=== PATIENT | male | born 1970 | race African-American/Black ===

== ENCOUNTER 2022-11-20 13:52 | Inpatient (IN) ==
[2022-11-20 16:17] VITALS: BMI 35.5
[2022-11-20] MEDS ORDERED: NS 1/2 1,000 ML IV 1,000 ML IV ONE (16:44)
[2022-11-20 16:46] LABS: BASOPHILS % (AUTO) 0.6 % (0.2-1.0); EOSINOPHILS % (AUTO) 0.6 % (0.9-2.9); HEMATOCRIT 49.5 % (42.0-54.0); HEMOGLOBIN 16.4 g/dL (13.5-18.0); LYMPHOCYTES # (AUTO) 1.3 X10^3/uL (1.3-2.9); LYMPHOCYTES % (AUTO) 19.5 % (21.0-51.0); MEAN CORPUSCULAR HEMOGLOBIN 29.9 pg (27.0-34.0); MEAN CORPUSCULAR HGB CONC 33.1 g/dL (33.0-35.0); MEAN CORPUSCULAR VOLUME 90.3 fL (80.0-100.0); MONOCYTES # (AUTO) 0.7 x10^3/uL (0.3-0.8); MONOCYTES % (AUTO) 9.9 % (0.0-13.0); NEUTROPHILS # (AUTO) 4.6 x10^3/uL (2.2-4.8); NEUTROPHILS % (AUTO) 69.4 % (42.0-75.0); PLATELET COUNT 153 X10^3/uL (150.0-450.0); RED BLOOD COUNT 5.48 X10^6/uL (4.7-6.0); RED CELL DISTRIBUTION WIDTH 13.4 % (11.6-16.5); WHITE BLOOD COUNT 6.7 X10^3/uL (3.6-10.0)
[2022-11-20 16:58] LABS: ALANINE AMINOTRANSFERASE 34 Units/L (12-78); ALBUMIN 3.3 g/dL (3.4-5.0); ALKALINE PHOSPHATASE 69 Units/L (46-116); ASPARTATE AMINO TRANSFERASE 26 Units/L (15-37); BLOOD UREA NITROGEN 15 mg/dL (7-18); CALCIUM 8.1 mg/dL (8.5-10.1); CARBON DIOXIDE 29.5 mmol/L (21-32); CHLORIDE 101 mmol/L (98-107); COR CA(FOR HYPOALB) 8.7 mg/dL (8.5-10.1); COR NA(FOR HYPERGLY) 139 mmol/L (136-145); CREATININE 1.15 mg/dL (0.70-1.30); GLUCOSE 154 mg/dL (65-99); POTASSIUM 4.3 mmol/L (3.5-5.1); SODIUM 138 mmol/L (136-145); TOTAL PROTEIN 7.1 g/dL (6.4-8.2); eGFR NON BLACK RACES > 60 (>60)
[2022-11-20] MEDS: NS 1/2 1,000 ML IV 1,000 ML IV SCH (17:25)
[2022-11-20] MEDS: VSL#3 PO SCH (17:26)
[2022-11-20] MEDS: ROBITUSSIN DM PO SCH ×2 (17:27→20:56)
[2022-11-20] MEDS: SOLU-Medrol 40 MG VIAL IVP SCH ×2 (17:27→21:02)
[2022-11-20] MEDS: LEVAQUIN PREMIX IV 750 MG 750 MG/150 ML BAG IV SCH (17:35)
[2022-11-20] MEDS ORDERED: ZOFRAN INJ 4 MG VIAL IVP PRN (18:49)
[2022-11-20] MEDS ORDERED: CATAPRES TAB 0.1 MG PO ONE (19:32)
[2022-11-20] MEDS ORDERED: APRESOLINE INJ 20 MG VIAL IVP ONE (19:32)
[2022-11-20] MEDS: PULMICORT NEB TX 0.5 MG NEB SCH (20:56)
[2022-11-21] MEDS: DUONEB 0.5 MG/3 MG (3 mL) NEB SCH ×5 (00:24→20:50)
[2022-11-21 05:25] LABS: BASOPHILS # (AUTO) 0.2 X10^3/uL (0.0-0.1); BASOPHILS % (AUTO) 2.2 % (0.2-1.0); EOSINOPHILS % (AUTO) 0.3 % (0.9-2.9); HEMATOCRIT 48.4 % (42.0-54.0); HEMOGLOBIN 16.4 g/dL (13.5-18.0); LYMPHOCYTES # (AUTO) 0.6 X10^3/uL (1.3-2.9); LYMPHOCYTES % (AUTO) 9.6 % (21.0-51.0); MEAN CORPUSCULAR HEMOGLOBIN 30.3 pg (27.0-34.0); MEAN CORPUSCULAR VOLUME 89.1 fL (80.0-100.0); MEAN PLATELET VOLUME 9.2 fL (7.4-11.0); MONOCYTES # (AUTO) 0.1 x10^3/uL (0.3-0.8); MONOCYTES % (AUTO) 1.8 % (0.0-13.0); NEUTROPHILS # (AUTO) 5.8 x10^3/uL (2.2-4.8); NEUTROPHILS % (AUTO) 86.1 % (42.0-75.0); PLATELET COUNT 163 X10^3/uL (150.0-450.0); RED BLOOD COUNT 5.43 X10^6/uL (4.7-6.0); RED CELL DISTRIBUTION WIDTH 13.3 % (11.6-16.5); WHITE BLOOD COUNT 6.8 X10^3/uL (3.6-10.0)
[2022-11-21] MEDS: NS 1/2 1,000 ML IV 1,000 ML IV SCH ×2 (05:31→21:49)
[2022-11-21] MEDS: SOLU-Medrol 40 MG VIAL IVP SCH ×3 (05:31→21:50)
[2022-11-21 05:53] LABS: ALANINE AMINOTRANSFERASE 37 Units/L (12-78); ALBUMIN 3.1 g/dL (3.4-5.0); ALKALINE PHOSPHATASE 66 Units/L (46-116); ASPARTATE AMINO TRANSFERASE 22 Units/L (15-37); BLOOD UREA NITROGEN 17 mg/dL (7-18); CALCIUM 7.8 mg/dL (8.5-10.1); CARBON DIOXIDE 27.4 mmol/L (21-32); CHLORIDE 100 mmol/L (98-107); COR CA(FOR HYPOALB) 8.5 mg/dL (8.5-10.1); COR NA(FOR HYPERGLY) 137 mmol/L (136-145); CREATININE 1.14 mg/dL (0.70-1.30); GLUCOSE 187 mg/dL (65-99); POTASSIUM 4.6 mmol/L (3.5-5.1); SODIUM 135 mmol/L (136-145); TOTAL PROTEIN 6.9 g/dL (6.4-8.2); eGFR NON BLACK RACES > 60 (>60)
--- NOTE | 2022-11-21 05:53 | RAD ---
HISTORYShortness of breath, flu-like symptomsSTUDYCHEST, 1 [id number]/05/2023FINDINGSThe trachea is midline. The cardiac silhouette is enlarged with a tortuous thoracic aorta . The lungs are clear without focal infiltrate or effusion. The bony thorax is unremarkable.IMPRESSIONNo acute cardiopulmonary disease.Electronically signed by: JOSE CORNELIUS (Nov 21, 2022 05:52:09)
--- NOTE | 2022-11-21 05:58 | RAD ---
HISTORYPneumoniaSTUDYTwo-view chestCOMPARISONNoneFINDINGSThe trachea is midline. The cardiac silhouette is enlarged with a tortuous thoracic aorta . The lungs are clear without focal infiltrate or effusion. The bony thorax is unremarkable.IMPRESSIONNo acute cardiopulmonary disease.Electronically signed by: JOSE CORNELIUS (Nov 21, 2022 05:57:43)
[2022-11-21] MEDS: PULMICORT NEB TX 0.5 MG NEB SCH ×2 (08:10→20:50)
[2022-11-21] MEDS ORDERED: ULTRAM PO PRN (08:44)
[2022-11-21] MEDS ORDERED: NS 1/2 1,000 ML IV 1,000 ML IV ONE ×4 (09:06→20:55)
[2022-11-21] MEDS: LEVAQUIN PREMIX IV 750 MG 750 MG/150 ML BAG IV SCH (09:25)
[2022-11-21] MEDS: TUSSIONEX PENNKINETIC SUSP PO PRN (09:26)
[2022-11-21] MEDS: ROBITUSSIN DM PO SCH ×4 (09:26→21:50)
[2022-11-21] MEDS: VSL#3 PO SCH (09:26)
[2022-11-21] MEDS: TAMIFLU PO SCH ×2 (09:27→21:50)
[2022-11-21] MEDS: CATAPRES TAB 0.2 MG PO SCH (09:41)
[2022-11-21] MEDS: MOBIC TAB 15 MG PO SCH ×2 (09:41→10:04)
[2022-11-21] MEDS: CALAN SR 180 MG PO SCH (09:41)
--- NOTE | 2022-11-21 13:29 | DR.H&P ---
H&P - History & Physical for Day of: H&P Date: 11/20/22 - Chief Complaint Chief Complaint: FEVER, COUGH, SOB, DIARRHEA, WEAKNESS - History of Present Illness History of Present Illness: IS A 52 YEAR OLD PATIENT OF [facility]. HE PRESENTED TO THE HOSPITAL A DIRECT ADMISSION, OBSERVATION STATUS, FOR TREATMENT OF BRONCHOPNEUMONIA, INFLUENZA B, DEHYDRATION, GENERALIZED WEAKNESS, AND NAUSEA AND VOMITING. PATIENT REPORTS THAT HE STARTED HAVING FEVER, COUGH, DIARRHEA, NAUSEA ON 11/09/22. HE PRESENTED TO HIS PCP FOR EVALUATION ON 11/16/22. HE TESTED POSITIVE FOR INFLUENZA B IN THE OFFICE. HE WAS PRESCRIBED TAMIFLU 75MG BID X 5 DAY, AN ALBUTEROL INHALER, AND A Z-PACK AT THAT TIME. PATIENT REPORTS THAT HE HAS BEEN COMPLIANT WITH MEDICATIONS, HOWEVER, HIS SYMPTOMS ARE PERSISTENTLY GETTING WORSE. HIS PMH INCLUDES: HTN, GOUT, CHRONIC LOW BACK PAIN. ON ADMISSION, HIS VITALS WERE: 98.3-52-20-95%-192/93. LABS WERE OBTAINED. WBC 6.7, RBC 5.48, HGB 16.4, HCT 49.5, PLT COUNT 153, SODIUM 138, POTASSIUM 4.3, CHLORIDE 101, BUN 15, CREATININE 1.15, GLUCOSE 154, CALCIUM 8.1, TOTAL BILI 0.70, AST 26, ALT 34, ALK PHOS 69, TOTAL PROTEIN 7.1, ALBUMIN 3.3. A RESPIRATORY VIRAL PANEL WAS SET UP. BLOOD AND SPUTUM CULTURES WERE ALSO SET UP. A CHEST XRAY WAS OBTAINED AND REVEALED: NO ACUTE CARDIOPULMONARY DISEASE. HE WAS STARTED ON NORMAL SALINE AT 125 ML/HR, LEVAQUIN 750MG IV DAILY, TAMIFLU 75MG BID, SOLU-MEDROL 40MG IV Q8H, TUSSIONEX 5ML Q12H PRN, ROBITUSSIN DM 10ML QID, DUONEBS Q6H, PULMICORT NEBS BID, PROBIOTICS DAILY, ZOFRAN 4MG IV Q6H PRN. HIS HOME MEDICATIONS OF CLONIDINE, MOBIC, LOPRESSOR, ULTRAM, AND VERAPAMIL WERE RESUMED. OTHERWISE, WE WILL FOLLOW-UP WITH AM LABS AND CONTINUE TO MONITOR. TIME SPENT ON CLINICAL ASSESSMENT, REVIEWING LABS AND IMAGING, DECISION MAKING, AND DOCUMENTATION GREATER THAN 75 MINUTES. - Past Medical History Past Medical History: Gout, Hypertension Additional Medical History: CHRONIC LOW BACK PAIN - Past Surgical History Surgical History: Unknown - Family History Family Medical History: Diabetes Mellitus, Hypertension - Social History Does patient currently use any type of tobacco product: No Have you used tobacco products in the last 12 months: No Type of Tobacco Use: None Does any household member use tobacco: No Alcohol Use: None Drug Use: None - Medications Home Medications: Home Medications Medication Instructions Recorded Confirmed Type albuterol sulfate 90 mcg/actuation 2 puff inhalation Q4H PRN 11/20/22 11/20/22 History aerosol inhaler azithromycin 250 mg tablet 1 tab PO DAILY 11/20/22 11/20/22 History clonidine HCl 0.2 mg tablet 0.2 mg PO DAILY 11/20/22 11/20/22 History meloxicam 7.5 mg tablet 1 tab PO QDAY 11/20/22 11/20/22 History metoprolol tartrate 100 mg tablet 100 mg PO BID 11/20/22 11/20/22 History oseltamivir 75 mg capsule 1 cap PO BID 11/20/22 11/20/22 History tramadol 50 mg tablet 1 tab PO BID PRN 11/20/22 11/20/22 History verapamil 180 mg tablet,extended 1 tab PO QDAY 11/20/22 11/20/22 History release - Review of Systems Constitutional: Fever, Weakness Eyes: No Symptoms Reported ENT: No Symptoms Reported Respiratory: Cough, Shortness of Breath, Sputum Gastrointestinal: No Symptoms Reported Genitourinary: No Symptoms Reported Musculoskeletal: Back Pain Skin: No Symptoms Reported Neurological: Weakness - Physical Exam Vital Signs: Temperature 98.1 F Temperature 98.3 F Pulse Rate [Left Radial] 91 Pulse Rate 65 Pulse Rate 76 Respiratory Rate 20 Respiratory Rate 20 Blood Pressure [Right Arm] 171/87 Blood Pressure [Right Arm] 192/93 O2 Sat by Pulse Oximetry 91 O2 Sat by Pulse Oximetry 95 Oriented: Normal Eyes: Normal Ear: Normal Nose: Normal Throat: Normal Respiratory: Wheezes Throughout Cardiovascular: Bradycardia : Normal Auscultation: Bowel Sounds: Normal Palpation: Normal Tenderness: Normal Skin: Normal Musculoskeletal: Normal Psychiatric: Normal Mood Description: Calm Affect: Normal Speech Pattern: Clear - Assessment/Plan (1) Bronchopneumonia Status: Acute Plan: ADMIT, NORMAL SALINE AT 125 ML/HR, LEVAQUIN 750MG IV DAILY, TAMIFLU 75MG BID, SOLU-MEDROL 40MG IV Q8H, TUSSIONEX 5ML Q12H PRN, ROBITUSSIN DM 10ML QID, DUONEBS Q6H, PULMICORT NEBS BID, PROBIOTICS DAILY, ZOFRAN 4MG IV Q6H PRN. (2) Influenza B Status: Acute (3) Dyspnea Qualifiers: Dyspnea type: shortness of breath Qualified Code(s): R06.02 - Shortness of breath Status: Acute (4) Generalized weakness Status: Acute (5) Nausea and vomiting Qualifiers: Vomiting type: unspecified Qualified Code(s): R11.2 - Nausea with vomiting, unspecified Status: Acute (6) HTN (hypertension) Qualifiers: Hypertension type: primary hypertension Qualified Code(s): I10 - Essential (primary) hypertension Status: Chronic - Allergies Allergies/Adverse Reactions: Allergies Allergy/AdvReac Type Severity Reaction Status Date / Time No Known Allergies Allergy Verified 11/20/22 16:34
[2022-11-21] MEDS: PROTONIX INJ 40 MG VIAL IVP SCH ×2 (14:24→21:49)
[2022-11-21] MEDS: PEPCID 20 MG VIAL 20 MG in NS 50 ML IV 50 ML IV SCH ×2 (14:24→21:49)
[2022-11-21] MEDS: LOPRESSOR TAB 50 MG PO SCH (21:50)
[2022-11-22] MEDS: DUONEB 0.5 MG/3 MG (3 mL) NEB SCH ×4 (00:20→17:22)
[2022-11-22] MEDS: NS 1/2 1,000 ML IV 1,000 ML IV SCH ×3 (03:34→19:11)
[2022-11-22 05:59] LABS: BASOPHILS % (AUTO) 0.1 % (0.2-1.0); HEMATOCRIT 45.9 % (42.0-54.0); HEMOGLOBIN 15.3 g/dL (13.5-18.0); LYMPHOCYTES # (AUTO) 0.6 X10^3/uL (1.3-2.9); LYMPHOCYTES % (AUTO) 3.8 % (21.0-51.0); MEAN CORPUSCULAR HEMOGLOBIN 29.7 pg (27.0-34.0); MEAN CORPUSCULAR HGB CONC 33.3 g/dL (33.0-35.0); MEAN CORPUSCULAR VOLUME 89.3 fL (80.0-100.0); MEAN PLATELET VOLUME 9.1 fL (7.4-11.0); MONOCYTES # (AUTO) 0.8 x10^3/uL (0.3-0.8); NEUTROPHILS # (AUTO) 15.1 x10^3/uL (2.2-4.8); NEUTROPHILS % (AUTO) 91.1 % (42.0-75.0); PLATELET COUNT 183 X10^3/uL (150.0-450.0); RED BLOOD COUNT 5.14 X10^6/uL (4.7-6.0); RED CELL DISTRIBUTION WIDTH 13.2 % (11.6-16.5); WHITE BLOOD COUNT 16.5 X10^3/uL (3.6-10.0)
[2022-11-22 06:06] LABS: ALANINE AMINOTRANSFERASE 42 Units/L (12-78); ALBUMIN 2.9 g/dL (3.4-5.0); ALKALINE PHOSPHATASE 64 Units/L (46-116); ASPARTATE AMINO TRANSFERASE 13 Units/L (15-37); BLOOD UREA NITROGEN 17 mg/dL (7-18); CALCIUM 7.5 mg/dL (8.5-10.1); CARBON DIOXIDE 29.8 mmol/L (21-32); CHLORIDE 101 mmol/L (98-107); COR CA(FOR HYPOALB) 8.4 mg/dL (8.5-10.1); COR NA(FOR HYPERGLY) 140 mmol/L (136-145); CREATININE 1.28 mg/dL (0.70-1.30); GLUCOSE 219 mg/dL (65-99); POTASSIUM 4.6 mmol/L (3.5-5.1); SODIUM 137 mmol/L (136-145); TOTAL PROTEIN 6.3 g/dL (6.4-8.2); eGFR NON BLACK RACES > 60 (>60)
--- NOTE | 2022-11-22 06:14 | RAD ---
HISTORYINFLUENZA, SOBSTUDYCHEST, 1 [id number]/06/2023.TECHNIQUEPA or AP view of the chestFINDINGSThe cardiac and mediastinal contours appear stable. Similar appearing mild left mid to lower lung patchy opacities. Right lung appears clear. No definite pleural effusion or pneumothorax.IMPRESSIONPatchy opacities in left mid to lower lung consistent with pneumonia. Recommend follow up imaging to document resolution after appropriate treatment.Electronically signed by: Brown Mireles (Nov 22, 2022 06:12:29)
[2022-11-22] MEDS: SOLU-Medrol 40 MG VIAL IVP SCH ×3 (06:22→21:45)
[2022-11-22 07:11] LABS: BAND NEUTROPHILS % 3 % (0-10)
[2022-11-22 07:12] LABS: PLATELET MORPHOLOGY COMMENT NORMAL (NORMAL)
[2022-11-22] MEDS: PULMICORT NEB TX 0.5 MG NEB SCH ×2 (08:29→20:53)
[2022-11-22] MEDS: LEVAQUIN PREMIX IV 750 MG 750 MG/150 ML BAG IV SCH (08:33)
[2022-11-22] MEDS: CATAPRES TAB 0.2 MG PO SCH (08:33)
[2022-11-22] MEDS: ROBITUSSIN DM PO SCH ×4 (08:33→21:45)
[2022-11-22] MEDS: TUSSIONEX PENNKINETIC SUSP PO PRN (08:33)
[2022-11-22] MEDS: LOPRESSOR TAB 50 MG PO SCH ×2 (08:33→21:45)
[2022-11-22] MEDS: PROTONIX INJ 40 MG VIAL IVP SCH ×2 (08:33→21:44)
[2022-11-22] MEDS: VSL#3 PO SCH (08:33)
[2022-11-22] MEDS: PEPCID 20 MG VIAL 20 MG in NS 50 ML IV 50 ML IV SCH ×2 (08:34→21:45)
[2022-11-22] MEDS: MOBIC TAB 15 MG PO SCH (08:34)
[2022-11-22] MEDS: CALAN SR 180 MG PO SCH (08:34)
[2022-11-22] MEDS: TAMIFLU PO SCH ×2 (08:35→21:45)
--- NOTE | 2022-11-22 17:05 | PCM.PROG ---
Progress Note - Progress Note for Day of Date of Exam: 11/22/22 - Subjective Subjective: IS CURRENTLY OBSERVATION STATUS FOR TREATMENT OF PNEUMONIA, INFLUENZA B, DYSPNEA, GENERALIZED WEAKNESS, AND NAUSEA AND VOMITING. HE HAS A PMH OF HTN. TODAY, HE IS ALERT AND ORIENTED, LYING IN BED ON MORNING ROUNDS. HE CONTINUES WITH COMPLAINTS OF A PRODUCTIVE COUGH, SHORTNESS OF BREATH, AND WHEEZING. HE DOES ADMIT TO SLIGHT IMPROVEMENT IN SYMPTOMS SINCE ADMISSION. ON EXAMINATION, HEART IS REGULAR IN RATE AND RHYTHM. BILATERAL LUNGS ARE NOTED WITH SCATTERED WHEEZING THROUGHOUT. ABDOMEN IS ROUND, SOFT, AND NON-TENDER WITH NORMAL BOWEL SOUNDS NOTED IN ALL QUADRANTS. GOOD MOVEMENT NOTED IN BILATERAL LOWER EXTREMITIES WITH NO EDEMA NOTED. HIS VITALS THIS MORNING ARE: 98.6-80-1 8-94%-160/83. HE IS CURRENTLY UTILIZING OXYGEN VIA NASAL CANNULA AT 2 LPM. LABS WERE OBTAINED. WBC INCREASED TO 16.5, RBC 5.14, HGB 15.3, HCT 45.9, PLT COUNT 183, SODIUM 137, POTASSIUM 4.6, CHLORIDE 101, BUN 17, CREATININE 1.28, GLUCOSE 219, CALCIUM 7.5, TOTAL BILI 0.50, AST 13, ALT 42, ALK PHOS 64, TOTAL PROTEIN 6.3, ALBUMIN 2.9. RESPIRATORY VIRAL PANEL IS POSITIVE FOR STREP PNEUMONIAE. TODAYS CHEST XRAY DOES REPORT A LEFT MID TO LOWER LOBE PNEUMONIA. HE IS CURRENTLY RECEIVING NORMAL SALINE AT 125 ML/HR, LEVAQUIN 750MG IV DAILY, TAMIFLU 75MG BID, SOLU-MEDROL 40MG IV Q8H, TUSSIONEX 5ML Q12H PRN, ROBITUSSIN DM 10ML QID, DUONEBS Q6H, PULMICORT NEBS BID, PROBIOTICS DAILY, ZOFRAN 4MG IV Q6H P RN. WE WILL CONTINUE WITH CURRENT PLAN OF CARE TODAY. OTHERWISE, WE WILL FOLLOW- UP WITH AM LABS AND CHEST XRAY AND CONTINUE TO MONITOR. TIME SPENT ON CLINICAL ASSESSMENT, REVIEWING LABS AND IMAGING, DECISION MAKING, AND DOCUMENTATION GREATER THAN 45 MINUTES. - Past Medical Family Social History Past Med/Fam/Surg Hx: No changes since H&P Allergies: Allergies No Known Allergies Allergy (Verified 11/20/22 16:34) - Review of Systems ROS: No change since H&P - Vital Signs and I&O's Vital Signs: Temperature 98.6 F Temperature 98.3 F Pulse Rate [Left Radial] 66 Pulse Rate 70 Pulse Rate 76 Respiratory Rate 18 Respiratory Rate 20 Blood Pressure [Right Arm] 138/77 Blood Pressure [Right Arm] 192/93 O2 Sat by Pulse Oximetry 97 O2 Sat by Pulse Oximetry 95 Intake and Output: Intake & Output 11/20/22 11/21/22 11/22/22 11/23/22 11:59 11:59 11:59 11:59 Intake Total 1010 / 1010 4167 / 4167 520 / 520 Balance 1010 / 1010 4167 / 4167 520 / 520 - Physical Exam Oriented: Normal Eyes: Normal Ear: Normal Nose: Normal Throat: Normal Respiratory: Wheezes Cardiovascular: Normal : Normal Auscultation: Bowel Sounds: Normal Palpation: Normal Tenderness: Normal Skin: Normal Musculoskeletal: Normal Psychiatric: Normal Mood Description: Calm Affect: Normal Speech Pattern: Clear, Appropriate - Laboratory and Diagnostics Result Diagrams: 11/22/22 05:12 11/22/22 05:12 Labs: 11/20/22 17:35 Blood Blood Culture - Preliminary 11/20/22 17:33 Blood Blood Culture - Preliminary 11/20/22 16:33 Sputum - Expectorated Sputum Sputum Culture - Final 11/20/22 16:33 Sputum - Expectorated Sputum - Final Laboratory WBC 16.5 X10^3/uL (3.6-10.0) H D 11/22/22 05:12 RBC 5.14 X10^6/uL (4.7-6.0) 11/22/22 05:12 Hgb 15.3 g/dL (13.5-18.0) 11/22/22 05:12 Hct 45.9 % (42.0-54.0) 11/22/22 05:12 MCV 89.3 fL (80.0-100.0) 11/22/22 05:12 MCH 29.7 pg (27.0-34.0) 11/22/22 05:12 MCHC 33.3 g/dL (33.0-35.0) 11/22/22 05:12 RDW 13.2 % (11.6-16.5) 11/22/22 05:12 Plt Count 183 X10^3/uL (150.0-450.0) 11/22/22 05:12 Plt Count Comment Adequate (ADEQUATE) 11/22/22 05:12 MPV 9.1 fL (7.4-11.0) 11/22/22 05:12 Neut % (Auto) 91.1 % (42.0-75.0) H 11/22/22 05:12 Lymph % (Auto) 3.8 % (21.0-51.0) L 11/22/22 05:12 Garrett % (Auto) 5.0 % (0.0-13.0) 11/22/22 05:12 Eos % (Auto) 0.0 % (0.9-2.9) L 11/22/22 05:12 Baso % (Auto) 0.1 % (0.2-1.0) L 11/22/22 05:12 Neut # (Auto) 15.1 x10^3/uL (2.2-4.8) H 11/22/22 05:12 Lymph # (Auto) 0.6 X10^3/uL (1.3-2.9) L 11/22/22 05:12 Garrett # (Auto) 0.8 x10^3/uL (0.3-0.8) 11/22/22 05:12 Eos # (Auto) 0.0 x10^3/uL (0.0-0.2) 11/22/22 05:12 Baso # (Auto) 0.0 X10^3/uL (0.0-0.1) 11/22/22 05:12 Absolute Nucleated RBC 0.0 /100WBC 11/22/22 05:12 Total Counted 100 11/22/22 05:12 Neutrophils % (Manual) 92 % (39-76) H 11/22/22 05:12 Band Neutrophils % 3 % (0-10) 11/22/22 05:12 Lymphocytes % (Manual) 1 % (13-43) L 11/22/22 05:12 Monocytes % (Manual) 4 % (4-9) 11/22/22 05:12 Plt Morphology Comment Normal (NORMAL) 11/22/22 05:12 RBC Morphology Normal (NORMAL) 11/22/22 05:12 Sodium 137 mmol/L (136-145) 11/22/22 05:12 Corrected Sodium 140 mmol/L (136-145) 11/22/22 05:12 Potassium 4.6 mmol/L (3.5-5.1) 11/22/22 05:12 Chloride 101 mmol/L (98-107) 11/22/22 05:12 Carbon Dioxide 29.8 mmol/L (21-32) 11/22/22 05:12 BUN 17 mg/dL (7-18) 11/22/22 05:12 Creatinine 1.28 mg/dL (0.70-1.30) 11/22/22 05:12 Est GFR (MDRD) Af Amer > 60 (>60) 11/22/22 05:12 Est GFR (MDRD) Non-Af > 60 (>60) 11/22/22 05:12 Glucose 219 mg/dL (65-99) H 11/22/22 05:12 Calcium 7.5 mg/dL (8.5-10.1) L 11/22/22 05:12 Corrected Calcium 8.4 mg/dL (8.5-10.1) L 11/22/22 05:12 Total Bilirubin 0.50 mg/dL (0.2-1.0) 11/22/22 05:12 AST 13 Units/L (15-37) L 11/22/22 05:12 ALT 42 Units/L (12-78) 11/22/22 05:12 Alkaline Phosphatase 64 Units/L (46-116) 11/22/22 05:12 Total Protein 6.3 g/dL (6.4-8.2) L 11/22/22 05:12 Albumin 2.9 g/dL (3.4-5.0) L 11/22/22 05:12 Globulin 3.4 g/dL (2.5-4.5) 11/22/22 05:12 Albumin/Globulin Ratio 0.9 Ratio (1.1-2.1) L 11/22/22 05:12 Resp Viral Panel (PCR) See scanned report 11/20/22 16:33 - Plan (1) Pneumonia Status: Acute Qualifiers: Pneumonia type: due to unspecified organism Laterality: left Lung location: lower lobe of lung Qualified Code(s): J18.9 - Pneumonia, unspecified organism Plan: NORMAL SALINE AT 125 ML/HR, LEVAQUIN 750MG IV DAILY, TAMIFLU 75MG BID, S CLEOPATRA-MEDROL 40MG IV Q8H, TUSSIONEX 5ML Q12H PRN, ROBITUSSIN DM 10ML QID, DUONEBS Q6H, PULMICORT NEBS BID, PROBIOTICS DAILY, ZOFRAN 4MG IV Q6H PRN. (2) Influenza B Status: Acute (3) Dyspnea Status: Acute Qualifiers: Dyspnea type: shortness of breath Qualified Code(s): R06.02 - Shortness of breath (4) Generalized weakness Status: Acute (5) Nausea and vomiting Status: Acute Qualifiers: Vomiting type: unspecified Qualified Code(s): R11.2 - Nausea with vomiting, unspecified (6) HTN (hypertension) Status: Chronic Qualifiers: Hypertension type: primary hypertension Qualified Code(s): I10 - Essential (primary) hypertension
[2022-11-22] MEDS ORDERED: NS 1/2 1,000 ML IV 1,000 ML IV ONE (18:38)
[2022-11-23] MEDS: DUONEB 0.5 MG/3 MG (3 mL) NEB SCH ×2 (00:10→06:15)
[2022-11-23] MEDS: NS 1/2 1,000 ML IV 1,000 ML IV SCH (00:15)
--- NOTE | 2022-11-23 05:06 | RAD ---
HISTORYBronchopneumonia, shortness of breathSTUDYCHEST, 1 [id number]/07/2023FINDINGSThe trachea is midline. The cardiac silhouette is unremarkable. Improved aeration left lower lobe is observed. The right fina thorax is clear.. The bony thorax is unremarkable.IMPRESSIONImproved aeration throughout the right and left fina thorax. No acute cardiopulmonary disease can be identified.Electronically signed by: JOSE CORNELIUS (Nov 23, 2022 05:05:27)
[2022-11-23] MEDS: SOLU-Medrol 40 MG VIAL IVP SCH (06:27)
[2022-11-23 06:43] LABS: BASOPHILS % (AUTO) 0.2 % (0.2-1.0); HEMATOCRIT 47.5 % (42.0-54.0); HEMOGLOBIN 15.8 g/dL (13.5-18.0); LYMPHOCYTES # (AUTO) 0.5 X10^3/uL (1.3-2.9); LYMPHOCYTES % (AUTO) 3.4 % (21.0-51.0); MEAN CORPUSCULAR HEMOGLOBIN 29.8 pg (27.0-34.0); MEAN CORPUSCULAR HGB CONC 33.2 g/dL (33.0-35.0); MEAN CORPUSCULAR VOLUME 89.8 fL (80.0-100.0); MEAN PLATELET VOLUME 9.2 fL (7.4-11.0); MONOCYTES # (AUTO) 0.7 x10^3/uL (0.3-0.8); MONOCYTES % (AUTO) 4.7 % (0.0-13.0); NEUTROPHILS # (AUTO) 14.2 x10^3/uL (2.2-4.8); NEUTROPHILS % (AUTO) 91.7 % (42.0-75.0); PLATELET COUNT 196 X10^3/uL (150.0-450.0); RED BLOOD COUNT 5.29 X10^6/uL (4.7-6.0); RED CELL DISTRIBUTION WIDTH 13.2 % (11.6-16.5); WHITE BLOOD COUNT 15.4 X10^3/uL (3.6-10.0)
[2022-11-23 07:24] LABS: ALANINE AMINOTRANSFERASE 39 Units/L (12-78); ALKALINE PHOSPHATASE 67 Units/L (46-116); ASPARTATE AMINO TRANSFERASE 13 Units/L (15-37); BLOOD UREA NITROGEN 19 mg/dL (7-18); CALCIUM 7.8 mg/dL (8.5-10.1); CARBON DIOXIDE 29.2 mmol/L (21-32); CHLORIDE 101 mmol/L (98-107); COR CA(FOR HYPOALB) 8.6 mg/dL (8.5-10.1); COR NA(FOR HYPERGLY) 143 mmol/L (136-145); CREATININE 1.23 mg/dL (0.70-1.30); GLUCOSE 250 mg/dL (65-99); POTASSIUM 4.3 mmol/L (3.5-5.1); SODIUM 139 mmol/L (136-145); TOTAL PROTEIN 6.3 g/dL (6.4-8.2); eGFR NON BLACK RACES > 60 (>60)
[2022-11-23 07:35] LABS: BAND NEUTROPHILS % 4 % (0-10); PLATELET MORPHOLOGY COMMENT NORMAL (NORMAL)
[2022-11-23 08:53] VITALS: BP 179/85; TEMP 98.1
[2022-11-23] MEDS: VSL#3 PO SCH (08:55)
[2022-11-23] MEDS: ROBITUSSIN DM PO SCH (08:55)
[2022-11-23] MEDS: TAMIFLU PO SCH (08:55)
[2022-11-23] MEDS: MOBIC TAB 15 MG PO SCH (08:56)
[2022-11-23] MEDS: LOPRESSOR TAB 50 MG PO SCH (08:56)
[2022-11-23] MEDS: CALAN SR 180 MG PO SCH (08:56)
[2022-11-23] MEDS: PEPCID 20 MG VIAL 20 MG in NS 50 ML IV 50 ML IV SCH (08:57)
[2022-11-23] MEDS: CATAPRES TAB 0.2 MG PO SCH (08:57)
[2022-11-23] MEDS: PROTONIX INJ 40 MG VIAL IVP SCH (08:58)
[2022-11-23] MEDS: LEVAQUIN PREMIX IV 750 MG 750 MG/150 ML BAG IV SCH (08:58)
[2022-11-23] MEDS: PULMICORT NEB TX 0.5 MG NEB SCH (09:01)
[2022-11-23 09:05] VITALS: PULSE 66; O2SAT 96
== END 2022-11-23 11:11 | disposition home or self-care (01) | DRG 195 ==
LOC: MED/SURG → OBSVTOIN 15:00
PROVIDERS: ADMIT Internal Medicine; ATTEND Internal Medicine
DX: J13 Pneumonia due to Streptococcus pneumoniae; J11.1 Influenza due to unidentified influenza virus with other respiratory manifestations; Z20.822 Contact with and (suspected) exposure to COVID-19; E86.0 Dehydration